=== PATIENT | male | born 1960 | race Caucasian/White ===

== ENCOUNTER 2016-09-07 16:55 | Outpatient (RCR) | payer OTHER ==
[2016-09-10 06:47] LABS: 24HR CRE 2.1 H GM/24H (0.8-1.8); HOURS COLLECTED CA URINE 24 HRS; URINE CREATININE MG/DL 89 MG/DL; URINE VOLUME REF CA 2400 ML
== END 2016-12-05 | disposition home or self-care (01) ==
LOC: LAB 16:55
PROVIDERS: ATTEND Surgery
DX: E83.52 Hypercalcemia (principal)
CPT/HCPCS: 36415; 82306; 82340